=== PATIENT | female | born 1980 | race Two or more races ===

== ENCOUNTER 2017-12-14 07:55 | Emergency (ER) | payer MEDICAID, OTHER ==
[~2017-12-14] VITALS: Ht 157.5 cm; Wt 56.7 kg
--- NOTE | 2017-12-14 08:07 | NUR ---
AAOX3, CAME TO ER C/O WORSENING ABDOMINAL CRAMPS X 2-3 DAYS, BLOOD CLOTS NOTED IN THE STOOL. RR IS EVEN AND UNLABORED WITH NAD NOTED. SKIN IS WARM AND DRY. DR LORENZANA AT BS FOR EVAL.
--- NOTE | 2017-12-14 08:21 | NUR ---
FAMILY PRACTICE PHYSICIAN AT DRAWING BLOOD. URINE OBTAINED SENT TO THE LAB.
[2017-12-14 08:30] LABS: BASOPHILS % (AUTO) 0.7 % (0.0-2.0); HEMATOCRIT 41 % (33-45); HEMOGLOBIN 13.9 g/dL (11.5-14.8); LYMPHOCYTES # (AUTO) 2.8 /CMM (0.8-4.8); LYMPHOCYTES % (AUTO) 43.8 % (20.0-44.0); MEAN CORPUSCULAR HGB CONC 34 g/dl (31.0-36.0); MEAN CORPUSCULAR VOLUME 89 fL (82-100); MONOCYTES # (AUTO) 0.6 /CMM (0.1-1.30); MONOCYTES % (AUTO) 9.9 % (2.0-12.0); NEUTROPHILS # (AUTO) 2.7 /CMM (1.8-8.9); NEUTROPHILS % (AUTO) 42.6 % (43.0-81.0); PLATELET COUNT (AUTO) 315 /CMM (150-450); RDW COEFFICIENT OF VARIATION 12.4 (11.5-15.0); RED BLOOD CELL COUNT(AUTO) 4.56 MIL/uL (4.0-5.2); WHITE BLOOD COUNT (AUTO) 6.3 K/uL (4.3-11.0)
[2017-12-14 08:33] LABS: APPEARANCE,URINE Clear (CLEAR); BILIRUBIN,URINE Negative (NEGATIVE); BLOOD, URINE Negative Ery/uL (NEGATIVE); COLOR,URINE Yellow (YELLOW); KETONES,URINE Negative (NEGATIVE); LEUKOCYTE ESTERASE ,URINE Negative (NEGATIVE); NITRITE, URINE Negative (NEGATIVE); PH,URINE 5.5 (5.0-8.0); PROTEIN,URINE Negative (NEGATIVE); UGLUCOSE Negative (NEGATIVE); UROBILINOGEN,URINE 0.2 EU/dL (0.2)
[2017-12-14 08:47] LABS: ALBUMIN 3.5 g/dL (3.4-5.0); BILIRUBIN,DIRECT 0.1 mg/dL (0.0-0.2); BILIRUBIN,TOTAL 0.3 mg/dL (0.2-1.0); CALCIUM, SERUM 8.3 mg/dL (8.5-10.1); CREATININE 0.7 mg/dL (0.6-1.3); POTASSIUM 4.1 mmol/L (3.5-5.1)
--- NOTE | 2017-12-14 09:49 | NUR ---
Patient discharged to home in stable condition. Written and verbal after care instructions given. Patient verbalizes understanding of instruction.
[2017-12-14 09:50] VITALS: BP 122/70
== END 2017-12-14 09:51 | disposition home or self-care (01) ==
LOC: ER 07:58
DX: R10.30 Lower abdominal pain, unspecified (principal); K58.9 Irritable bowel syndrome, unspecified; F17.200 Nicotine dependence, unspecified, uncomplicated; Z88.2 Allergy status to sulfonamides; Z88.8 Allergy status to other drugs, medicaments and biological substances; Z60.2 Problems related to living alone
CPT/HCPCS: 36415; 74176; 80048; 80076; 81001; 83690; 84703; 85025; 99285; A4606; Z7610; 81000-TC

== ENCOUNTER 2018-08-15 17:48 | Emergency (ER) | payer MEDICAID ==
[~2018-08-15] VITALS: Ht 157.5 cm; Wt 54.9 kg
--- NOTE | 2018-08-15 18:07 | NUR ---
SHELBY STONER AT BEDSIDE
--- NOTE | 2018-08-15 18:11 | NUR ---
BIB SELF, C/O MID TO LEFT CP "SHARP" NON RADIATING, OFF&ON SINCE YESTERDAY WITH SOB & DIZZINESS. PAIN IS 6/10. PT IS AOX4, AMB, VSS. DENIES WEAKNESS, N/V. SKIN INTACT. BABY AT BEDSIDE. READY FOR EVAL.
[2018-08-15] MEDS ORDERED: LORAZEPAM 0.5 MG TABLET ONE (18:25)
[2018-08-15] MEDS ORDERED: LORAZEPAM 1 MG TABLET PO ONE (18:30)
--- NOTE | 2018-08-15 19:13 | NUR ---
REPORT GIVEN TO SANYA ALVARADO FOR [facility]
--- NOTE | 2018-08-15 19:17 | NUR ---
SHELBY Blackwood at bedside for Re-eval.
--- NOTE | 2018-08-15 19:24 | NUR ---
Accounting Practice Manager at bedside for lab draw.
[2018-08-15 19:33] LABS: BASOPHILS % (AUTO) 0.4 % (0.0-2.0); EOSINOPHILS % (AUTO) 0.5 % (0.0-6.0); HEMATOCRIT 43 % (33-45); HEMOGLOBIN 14.6 g/dL (11.5-14.8); LYMPHOCYTES # (AUTO) 2.2 /CMM (0.8-4.8); MEAN CORPUSCULAR HGB CONC 34 g/dl (31.0-36.0); MEAN CORPUSCULAR VOLUME 93 fL (82-100); MONOCYTES # (AUTO) 0.7 /CMM (0.1-1.30); MONOCYTES % (AUTO) 8.1 % (2.0-12.0); NEUTROPHILS # (AUTO) 5.4 /CMM (1.8-8.9); PLATELET COUNT (AUTO) 296 /CMM (150-450); RED BLOOD CELL COUNT(AUTO) 4.65 MIL/uL (4.0-5.2); WHITE BLOOD COUNT (AUTO) 8.3 K/uL (4.3-11.0)
[2018-08-15 19:40] LABS: CALCIUM, SERUM 8.9 mg/dL (8.5-10.1); CARBON DIOXIDE 28 mmol/L (21-32); CHLORIDE 107 mmol/L (98-107); CREATININE 0.7 mg/dL (0.6-1.3); GLUCOSE 99 mg/dL (74-106); SODIUM SERUM 140 mmol/L (136-145); UREA NITROGEN, BLOOD 16 mg/dL (7-18)
--- NOTE | 2018-08-15 19:54 | NUR ---
Pt being monitored.
--- NOTE | 2018-08-15 21:12 | NUR ---
Patient discharged to home in stable condition. Written and verbal after care instructions given. Patient verbalizes understanding of instruction. Pt ambulatory with steady gait. NAD noted.
[2018-08-15 21:13] VITALS: BP 129/92
== END 2018-08-15 21:14 | disposition home or self-care (01) ==
LOC: ER 17:49
DX: F41.9 Anxiety disorder, unspecified (principal); R07.89 Other chest pain; F12.10 Cannabis abuse, uncomplicated; K58.9 Irritable bowel syndrome, unspecified; F10.10 Alcohol abuse, uncomplicated; F17.200 Nicotine dependence, unspecified, uncomplicated; Y90.9 Presence of alcohol in blood, level not specified; Z88.2 Allergy status to sulfonamides; Z60.2 Problems related to living alone; Z98.890 Other specified postprocedural states
CPT/HCPCS: 36415; 71045-TC; 80048-TC; 84484-TC; 85025-TC; 85730-TC

== ENCOUNTER 2018-12-07 12:16 | Emergency (ER) ==
[~2018-12-07] VITALS: Ht 160 cm; Wt 52.2 kg
[2018-12-07 12:47] VITALS: BP 111/84
[2018-12-07] MEDS ORDERED: IBUPROFEN 600 MG TABLET PO ONE ×2 (13:07→13:30)
== END 2018-12-07 14:24 | disposition home or self-care (01) ==
LOC: ER 12:23
DX: M79.644 Pain in right finger(s) (principal); K58.9 Irritable bowel syndrome, unspecified; F41.9 Anxiety disorder, unspecified; F17.200 Nicotine dependence, unspecified, uncomplicated; F10.10 Alcohol abuse, uncomplicated; Y90.9 Presence of alcohol in blood, level not specified; Z60.2 Problems related to living alone; Z98.890 Other specified postprocedural states; Z88.2 Allergy status to sulfonamides; Z88.1 Allergy status to other antibiotic agents
CPT/HCPCS: 73140-TC

== ENCOUNTER 2019-02-20 21:59 | Emergency (ER) | payer MEDICAID ==
[~2019-02-20] VITALS: Ht 157.5 cm; Wt 50.3 kg
[2019-02-20 22:16] VITALS: BP 125/88
--- NOTE | 2019-02-20 22:32 | NUR ---
bibs for c/o nausea. had an episode of vomiting @ 5am . presenting to the ER for more evaluation and a test.
[2019-02-20 22:46] LABS: APPEARANCE,URINE Clear (CLEAR); BILIRUBIN,URINE Negative (NEGATIVE); BLOOD, URINE Negative Ery/uL (NEGATIVE); COLOR,URINE Dark (YELLOW); KETONES,URINE Negative (NEGATIVE); LEUKOCYTE ESTERASE ,URINE Negative (NEGATIVE); NITRITE, URINE Negative (NEGATIVE); PROTEIN,URINE Negative (NEGATIVE); UGLUCOSE Negative (NEGATIVE); UROBILINOGEN,URINE 0.2 EU/dL (0.2)
[2019-02-20] MEDS ORDERED: ONDANSETRON 4 MG TAB.RAPDIS SL ONE (23:00)
[2019-02-20] MEDS ORDERED: ONDANSETRON 4 MG TAB.RAPDIS ONE (23:05)
--- NOTE | 2019-02-20 23:11 | NUR ---
Patient discharged to home in stable condition. Rx and Written and verbal after care instructions given. Patient verbalizes understanding of instruction.
== END 2019-02-20 23:12 | disposition home or self-care (01) ==
LOC: ER 22:05
DX: A08.4 Viral intestinal infection, unspecified (principal); K58.9 Irritable bowel syndrome, unspecified; F41.9 Anxiety disorder, unspecified; F17.200 Nicotine dependence, unspecified, uncomplicated; Z98.890 Other specified postprocedural states; Z88.2 Allergy status to sulfonamides; Z88.1 Allergy status to other antibiotic agents; Z60.2 Problems related to living alone
CPT/HCPCS: 81001; 84703; 99283; Q0162; 81000-TC

== ENCOUNTER 2019-03-20 22:36 | Emergency (ER) | payer MEDICAID ==
[~2019-03-20] VITALS: Ht 157.5 cm; Wt 49.0 kg
--- NOTE | 2019-03-21 00:23 | NUR ---
BIBS. C/O "HAVING +N/-V X FEW DAYS. -ABD PAIN"AOX4. VSS. AMBULATORY. -DIZZY
[2019-03-21 01:47] LABS: BASOPHILS # (AUTO) 0.1 /CMM (0.0-0.2); EOSINOPHILS % (AUTO) 1.4 % (0.0-6.0); HEMATOCRIT 41 % (33-45); HEMOGLOBIN 13.9 g/dL (11.5-14.8); LYMPHOCYTES # (AUTO) 3.4 /CMM (0.8-4.8); LYMPHOCYTES % (AUTO) 44.7 % (20.0-44.0); MEAN CORPUSCULAR HGB CONC 34 g/dl (31.0-36.0); MEAN CORPUSCULAR VOLUME 92 fL (82-100); MONOCYTES # (AUTO) 0.7 /CMM (0.1-1.30); MONOCYTES % (AUTO) 9.6 % (2.0-12.0); NEUTROPHILS # (AUTO) 3.3 /CMM (1.8-8.9); NEUTROPHILS % (AUTO) 43.3 % (43.0-81.0); PLATELET COUNT (AUTO) 252 /CMM (150-450); RED BLOOD CELL COUNT(AUTO) 4.39 MIL/uL (4.0-5.2); WHITE BLOOD COUNT (AUTO) 7.7 K/uL (4.3-11.0)
[2019-03-21 01:56] LABS: CALCIUM, SERUM 8.5 mg/dL (8.5-10.1); CREATININE 0.7 mg/dL (0.6-1.3); POTASSIUM 3.8 mmol/L (3.5-5.1)
[2019-03-21 02:01] LABS: ALBUMIN 3.7 g/dL (3.4-5.0); BILIRUBIN,DIRECT 0.1 mg/dL (0.0-0.2); BILIRUBIN,TOTAL 0.4 mg/dL (0.2-1.0)
[2019-03-21 02:59] LABS: THYROID STIMULATING HORMONE < 0.007 uIU/mL (0.358-3.74)
[2019-03-21 03:36] VITALS: BP 112/73
== END 2019-03-21 03:36 | disposition home or self-care (01) ==
LOC: ER 22:36
DX: O26.891 Other specified pregnancy related conditions, first trimester (principal); R11.0 Nausea; R63.4 Abnormal weight loss; K58.9 Irritable bowel syndrome, unspecified; F41.9 Anxiety disorder, unspecified; E03.9 Hypothyroidism, unspecified; F10.10 Alcohol abuse, uncomplicated; F12.10 Cannabis abuse, uncomplicated; Y90.9 Presence of alcohol in blood, level not specified; Z85.038 Personal history of other malignant neoplasm of large intestine; Z98.890 Other specified postprocedural states; Z88.2 Allergy status to sulfonamides; Z88.1 Allergy status to other antibiotic agents; Z60.2 Problems related to living alone; Z3A.00 Weeks of gestation of pregnancy not specified
CPT/HCPCS: 36415; 80048-TC; 80076-TC; 83690-TC; 84439-TC; 84443-TC; 84702-TC; 84703-TC; 85025-TC; 85730-TC

== ENCOUNTER 2019-04-05 23:51 | Emergency (ER) | payer MEDICAID ==
[~2019-04-05] VITALS: Ht 157.5 cm; Wt 49.0 kg
[2019-04-06 00:02] VITALS: BP 113/93
--- NOTE | 2019-04-06 00:02 | NUR ---
PT C/O HOT FLASHES, DIZZY, COLD SWEATS SINCE SWITCHING THYROID MEDS X3 DAYS. PT AOX4. NAD NOTED. RESP EVEN AND UNLABORED. PT IN BED 10 WITH FAMILY AT BEDSIDE. WILL CONTINUE TO MONITOR.
[2019-04-06 00:53] LABS: BASOPHILS % (AUTO) 0.3 % (0.0-2.0); EOSINOPHILS % (AUTO) 0.3 % (0.0-6.0); HEMATOCRIT 39 % (33-45); HEMOGLOBIN 13.3 g/dL (11.5-14.8); LYMPHOCYTES # (AUTO) 2.5 /CMM (0.8-4.8); LYMPHOCYTES % (AUTO) 23.8 % (20.0-44.0); MEAN CORPUSCULAR HGB CONC 34 g/dl (31.0-36.0); MEAN CORPUSCULAR VOLUME 92 fL (82-100); MONOCYTES # (AUTO) 0.7 /CMM (0.1-1.30); MONOCYTES % (AUTO) 6.4 % (2.0-12.0); NEUTROPHILS # (AUTO) 7.2 /CMM (1.8-8.9); NEUTROPHILS % (AUTO) 69.2 % (43.0-81.0); PLATELET COUNT (AUTO) 270 /CMM (150-450); RED BLOOD CELL COUNT(AUTO) 4.27 MIL/uL (4.0-5.2); WHITE BLOOD COUNT (AUTO) 10.4 K/uL (4.3-11.0)
[2019-04-06 01:07] LABS: CALCIUM, SERUM 8.7 mg/dL (8.5-10.1); CREATININE 0.8 mg/dL (0.6-1.3); POTASSIUM 3.6 mmol/L (3.5-5.1)
[2019-04-06 01:52] LABS: THYROID STIMULATING HORMONE < 0.007 uIU/mL (0.358-3.74)
== END 2019-04-06 02:54 | disposition home or self-care (01) ==
LOC: ER 23:57
DX: O9A.219 Injury, poisoning and certain other consequences of external causes complicating pregnancy, unspecified trimester (principal); T38.2X5A Adverse effect of antithyroid drugs, initial encounter; R42 Dizziness and giddiness; O99.280 Endocrine, nutritional and metabolic diseases complicating pregnancy, unspecified trimester; O99.340 Other mental disorders complicating pregnancy, unspecified trimester; F41.9 Anxiety disorder, unspecified; K58.9 Irritable bowel syndrome, unspecified; G47.00 Insomnia, unspecified; E04.1 Nontoxic single thyroid nodule; R11.10 Vomiting, unspecified; F12.10 Cannabis abuse, uncomplicated; R00.0 Tachycardia, unspecified; Z98.890 Other specified postprocedural states; Z85.038 Personal history of other malignant neoplasm of large intestine; Z88.2 Allergy status to sulfonamides; Z88.1 Allergy status to other antibiotic agents; Z60.2 Problems related to living alone; Z3A.00 Weeks of gestation of pregnancy not specified; Y92.89 Other specified places as the place of occurrence of the external cause
CPT/HCPCS: 36415; 80048-TC; 84439-TC; 84443-TC; 85025-TC

== ENCOUNTER 2024-10-17 11:33 | Emergency (ER) | payer MEDICAID ==
[~2024-10-17] VITALS: Ht 157.5 cm; Wt 56.7 kg
[2024-10-17 12:34] LABS: HEMATOCRIT 44 % (33-45); HEMOGLOBIN 15.5 g/dL (11.5-14.8); MEAN CORPUSCULAR HEMOGLOBIN 30 PG (26.0-33.0); MEAN CORPUSCULAR HGB CONC 35 g/dl (31.0-36.0); WHITE BLOOD COUNT (AUTO) 4.8 K/uL (4.3-11.0)
[2024-10-17 12:36] LABS: CALCIUM, SERUM 9.2 mg/dL (8.5-10.1); CARBON DIOXIDE 27 mmol/L (21-32); CHLORIDE 101 mmol/L (98-107); CREATININE 0.7 mg/dL (0.6-1.3); GLUCOSE 97 mg/dL (74-106); POTASSIUM 3.2 mmol/L (3.5-5.1); SODIUM SERUM 138 mmol/L (136-145); UREA NITROGEN, BLOOD 23 mg/dL (7-18)
[2024-10-17] MEDS ORDERED: KETOROLAC TROMETHAMINE 15 MG/ML VIAL ONE ×2 (12:38→12:39)
[2024-10-17] MEDS ORDERED: PANTOPRAZOLE 40 MG VIAL ONE (12:39)
[2024-10-17] MEDS ORDERED: ONDANSETRON HCL/PF 4 MG/2 ML VIAL ONE (12:39)
[2024-10-17 12:41] LABS: INR 1.07 (0.91-1.10); PARTIAL THROMBOPLASTIN TIME 29.5 SEC (24.3-34.3); PROTHROMBIN TIME 11.3 SECS (9.2-11.1)
[2024-10-17 12:42] LABS: ALANINE AMINOTRANSFERASE 31 U/L (12-78); ALBUMIN 3.7 g/dL (3.4-5.0); ALKALINE PHOSPHATASE 69 U/L (46-116); ASPARTATE AMINOTRANSFERASE 32 U/L (15-37); BILIRUBIN,DIRECT 0.1 mg/dL (0.0-0.2); BILIRUBIN,TOTAL 0.5 mg/dL (0.2-1.0); TOTAL PROTEIN, SERUM 7.5 g/dL (6.4-8.2)
[2024-10-17 12:53] LABS: BASOPHILS % (AUTO) 0.8 % (0.0-2.0); EOSINOPHILS % (AUTO) 0.7 % (0.0-6.0); LYMPHOCYTES # (AUTO) 1.6 K/uL (0.8-4.8); LYMPHOCYTES % (AUTO) 34.4 % (20.0-44.0); MEAN CORPUSCULAR VOLUME 85 fL (82-100); MONOCYTES # (AUTO) 0.7 K/uL (0.1-1.30); MONOCYTES % (AUTO) 14.7 % (2.0-12.0); NEUTROPHILS # (AUTO) 2.4 K/uL (1.8-8.9); NEUTROPHILS % (AUTO) 49.4 % (43.0-81.0); PLATELET COUNT (AUTO) 275 K/uL (150-450); RED CELL DISTRIBUTION WIDTH 13.1 % (11.5-15.0)
[2024-10-17] MEDS: IV NS 0.9% 1,000 ML BAG IV ONE (13:02)
[2024-10-17] MEDS: ONDANSETRON HCL/PF 4 MG/2 ML VIAL IVP ONE (13:03)
[2024-10-17] MEDS: PANTOPRAZOLE 40 MG VIAL IV ONE (13:04)
[2024-10-17] MEDS: KETOROLAC TROMETHAMINE 15 MG/ML VIAL IV ONE (13:05)
[2024-10-17] MEDS ORDERED: POTASSIUM CHLORIDE 20 MEQ TAB.PRT.SR PO ONE (13:08)
[2024-10-17] MEDS: POTASSIUM CHLORIDE 20 MEQ TAB.PRT.SR PO ONE (13:12)
[2024-10-17] MEDS ORDERED: IBUP-1490 PO (13:13)
[2024-10-17] MEDS ORDERED: ONDA4TAB5 PO (13:13)
[2024-10-17 13:57] VITALS: BP 127/96; TEMP 98.4; O2SAT 99
== END 2024-10-17 14:25 | disposition home or self-care (01) ==
LOC: ER 11:39
DX: B34.9 Viral infection, unspecified (principal); R00.2 Palpitations; R07.9 Chest pain, unspecified; R11.2 Nausea with vomiting, unspecified; R19.7 Diarrhea, unspecified; E03.9 Hypothyroidism, unspecified; F12.90 Cannabis use, unspecified, uncomplicated; K58.9 Irritable bowel syndrome, unspecified; Z88.1 Allergy status to other antibiotic agents; Z88.2 Allergy status to sulfonamides; Z60.2 Problems related to living alone
CPT/HCPCS: 99285; 96374; 96375; 71045; 96361; 93005; 85025; 80048; 83690; 80076; 36415; 84484; 85730; J1885 ×2; J2405; J7030; J2470